=== PATIENT | male | born 1945 | race Caucasian/White ===

== ENCOUNTER 2021-05-05 21:36 | Emergency (ER) | payer MEDICARE ==
[~2021-05-05] VITALS: Ht 172.7 cm; Wt 104.3 kg
[2021-05-06] MEDS ORDERED: HYDROCODON-ACE1 EA10 PO (00:51)
== END 2021-05-06 01:10 | disposition home or self-care (01) ==
LOC: ED 21:36
DX: R10.32 Left lower quadrant pain (principal)
CPT/HCPCS: 74177; 80053; 81001; 83690; 85025; 93971; 96375; 99284-25; J1170; J2405; Q9967